=== PATIENT | male | born 1970 | race Caucasian/White ===

== ENCOUNTER 2016-09-17 13:34 | Emergency (ER) | payer OTHER ==
[2016-09-17] MEDS ORDERED: IOPAMIDOL 370 (76%) 100 ML VIAL IV ONE (13:35)
[2016-09-17] MEDS ORDERED: ASPIRIN CHEWTAB 81 MG TABLET ONE (14:18)
[2016-09-17] MEDS ORDERED: PANTOPRAZOLE SODIUM 40 MG VIAL IV ONE (14:18)
[2016-09-17] MEDS ORDERED: MAALOX/LIDO2%VISC/SIMETHICONE 40 ML BOT ONE (14:18)
[2016-09-17 14:33] LABS: ABSOLUTE NEUTROPHIL COUNT 4.2 K/mm3 (1.8-7.7); BASO % 0.5 % (0.2-1.0); EOS # 0.1 (0.0-0.5); HEMATOCRIT 45.5 % (32.0-52.0); HEMOGLOBIN 15.3 gm/l (14.0-18.0); IMM NEUT% 0.3 % (0-1); LYMPH # 1.3 (1.0-4.8); LYMPH % 20.9 % (15-45); MEAN CELL VOLUME 85.2 fl (80.0-94.0); MEAN CORPUSCULAR HEMOGLOBIN 28.7 pg (27.0-31.0); MEAN CORPUSCULAR HGB CONC 33.6 g/dl (33.0-37.0); MONO # 0.6 (0.0-0.8); NEUT % 67.3 % (43-75); PLATELET COUNT 232 K/mm3 (130-400); RED CELL DISTRIBUTION WIDTH 11.9 % (11.5-14.5)
[2016-09-17 14:40] LABS: D-DIMER 2.42 mg/L FEU (0.20-0.50); INR 1.01; PROTHROMBIN TIME 10.6 SECONDS (9.3-11.4)
[2016-09-17 14:45] LABS: TROPONIN I < 0.01 ng/ml (0.0-0.06)
[2016-09-17 14:46] LABS: ALB/GLOB RATIO 1.6 (>1.0); ALBUMIN 3.9 gm/dL (3.5-5.7)
[2016-09-17 14:49] LABS: CKMB ISOENZYME 1.6 ng/ml (0.6-6.3)
--- NOTE | 2016-09-17 14:50 | RAD ---
EXAMINATION:CHEST - 2 VIEWS CLINICAL INDICATION: Chest pain COMPARISON: 09/15/2016. FINDINGS: The cardiomediastinal silhouette is unaltered from the prior study. There is no adenopathy identified. There is no pleural effusion. The lungs are clear. The osseous structures are unremarkable for age. IMPRESSION: Negative PA and lateral views of the chest. No acute cardiopulmonary process is identified.
--- NOTE | 2016-09-17 16:22 | CT ---
EXAMINATION: CT angiography of the thorax.CTA CHEST FOR PE INDICATION: Chest pain. Recent nephrectomy 10 days ago for renal cell carcinoma. COMPARISON: None TECHNIQUE: Helical scan mode CT of the Thorax after uneventful intravenous contrast administration of 60 ml of Isovue-370. Imaging device: Oncothyreon multidetector CT scan. Helically acquired stacked images were reviewed in the axial, sagittal and coronal planes. Additional 3-D postprocessing was performed and reconstructed images were acquired at the [employer] workstation and reviewed as well. FINDINGS: The bolus is of good quality for diagnosis of pulmonary embolism. There are no pulmonary arterial filling defects. No vascular malformations are identified.. The great vessels opacify normally. The lung parenchyma: There is mild bibasilar atelectasis. No mass or consolidation is identified. There is no pneumothorax. Pleural effusion: None: Mediastinum: There is no worrisome mediastinal or hilar lymphadenopathy. There is cardiomegaly. No pericardial effusion is identified. The thoracic inlet is unremarkable. Osseus structures: No gross lytic or blastic lesions. Soft tissues: within normal limits Limited evaluation of the abdomen on this arterial phase injection reveals: No gross acute inflammatory or obstructive changes. Splenomegaly is noted with a long axis dimension of 15.4 cm. IMPRESSION: 1. Negative for pulmonary embolism. No gross metastatic lesions are identified. 2. Mild bibasilar atelectasis. 3. Cardiomegaly. 4. Splenomegaly. The findings were uploaded to the electronic medical record for review at approximately 4:22 PM 09/17/2016
[2016-09-17 17:35] LABS: URINE BILIRUBIN NEGATIVE (NEGATIVE); URINE BLOOD NEGATIVE (NEGATIVE); URINE GLUCOSE (UA) NEGATIVE (NEGATIVE); URINE LEUKOCYTE ESTERASE NEGATIVE (NEGATIVE); URINE NITRITE NEGATIVE (NEGATIVE); URINE PROTEIN NEGATIVE (NEGATIVE); URINE UROBILINOGEN NORMAL (0-1 mg/dl)
[2016-09-17 17:37] LABS: URINE APPEARANCE CLEAR; URINE COLOR YELLOW
== END 2016-09-17 18:17 | disposition home or self-care (01) ==
LOC: ED 13:34
DX: R07.9 Chest pain, unspecified (principal); G89.18 Other acute postprocedural pain; Z90.5 Acquired absence of kidney
CPT/HCPCS: 85379; 82150; 85025; 82550; 82553; 80053; 85610; 81003; 84484; 71020; 71275; 99284 ×2; 96374; 93005; A9270 ×2; C9113; Q9967

== ENCOUNTER 2016-10-03 07:39 | Emergency (ER) | payer OTHER ==
[2016-10-03] MEDS ORDERED: MORPHINE SULFATE 4 MG/ML SYRINGE ONE ×2 (08:46→10:52)
[2016-10-03] MEDS ORDERED: SODIUM CHLORIDE 0.9% 1,000 ML ONE ×2 (08:46→10:52)
[2016-10-03] MEDS ORDERED: ONDANSETRON 4 MG/2ML 2 ML VIAL ONE (08:46)
[2016-10-03 08:55] LABS: ABSOLUTE NEUTROPHIL COUNT 6.1 K/mm3 (1.8-7.7); BASO % 0.2 % (0.2-1.0); EOS % 0.4 % (0.9-2.9); HEMATOCRIT 45.3 % (32.0-52.0); IMM NEUT% 0.4 % (0-1); LYMPH # 1.1 (1.0-4.8); LYMPH % 13.8 % (15-45); MEAN CELL VOLUME 85.5 fl (80.0-94.0); MEAN CORPUSCULAR HEMOGLOBIN 28.3 pg (27.0-31.0); MEAN CORPUSCULAR HGB CONC 33.1 g/dl (33.0-37.0); MONO % 11.8 % (4-12); NEUT % 73.4 % (43-75); PLATELET COUNT 202 K/mm3 (130-400); RED CELL DISTRIBUTION WIDTH 11.9 % (11.5-14.5); URINE APPEARANCE CLEAR; URINE BILIRUBIN NEGATIVE (NEGATIVE); URINE BLOOD TRACE (NEGATIVE); URINE COLOR AMBER; URINE GLUCOSE (UA) NEGATIVE (NEGATIVE); URINE LEUKOCYTE ESTERASE NEGATIVE (NEGATIVE); URINE NITRITE NEGATIVE (NEGATIVE); URINE PROTEIN TRACE (NEGATIVE); URINE UROBILINOGEN NORMAL (0-1 mg/dl)
[2016-10-03 09:03] LABS: URINE BACTERIA 0; URINE EPITHELIAL CELLS RARE /hpf; URINE RBC 0-2 /hpf; URINE WBC NEG /hpf
[2016-10-03 09:14] LABS: ALB/GLOB RATIO 1.2 (>1.0); ALBUMIN 4.4 gm/dL (3.5-5.7); CALCIUM 11.3 mg/dL (8.6-10.3)
--- NOTE | 2016-10-03 09:51 | CT ---
CT ABDOMEN AND PELVIS WITHOUT CONTRAST HISTORY: Abdominal pain and nausea. TECHNIQUE: No intravenous contrast administered; contiguous axial images were acquired from the lung bases to the ischial tuberosities. Oral contrast was not administered. COMPARISON: Correlation against MRI from 06/30/2016 FINDINGS: LUNG BASES: No gross airspace consolidation or pleural effusion. LIVER: No focal mass effect. SPLEEN: No focal mass effect. PANCREAS: Minor peripancreatic and mesenteric stranding there is relative expansion and hyperattenuation within the superior mesenteric vein. ADRENAL GLANDS: No mass effect. KIDNEYS: Status post left-sided nephrectomy associated fluid collection. Gas is seen at left-sided anterior abdominal wall with additional stranding, correlate against procedural history. Renal transplant at the right iliac fossa without collecting system dilatation. Atrophic right kidney. GALLBLADDER: Present. BOWEL: Moderate fecal loading. Limited assessment of the distal colon due to decompression. No abnormal small bowel dilatation. APPENDIX: Grossly unremarkable. PELVIC ORGANS: No gross mass effect. FREE FLUID: No gross free fluid identified. ABDOMINOPELVIC LYMPH NODES: No abnormally enlarged lymph nodes identified. ABDOMINAL AORTA: Normal caliber. OSSEOUS STRUCTURES: No grossly destructive lesions. Disc degeneration with right paracentral to foraminal protrusion at L5-S1. IMPRESSION: 1. Hyperattenuation, expansion, and fatty edema seen in association with the superior mesenteric vein and its tributaries, worrisome for thrombosis; consider sonographic correlation in the setting of renal transplant in recent nephrectomy. Minor superimposed pancreatitis is difficult to exclude. Mesenteric panniculitis would be in the differential. No free fluid. 2. Evidence of left nephrectomy with post procedure change of the anterior abdominal wall and left renal fossa. 3. Unremarkable noncontrast appearance of right iliac fossa renal transplant. 4. Disc degeneration with right-sided protrusion at L5-S1. Findings discussed with Dr. Soler of the Emergency Medicine clinical service on 10/03/2016 at 0946 hours.
[2016-10-03] MEDS ORDERED: ENOXAPARIN SODIUM 100 MG/ML SYRINGE SUB-Q ONE (10:53)
--- NOTE | 2016-10-03 10:57 | US ---
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 History of left nephrectomy and renal transplant. Limited sonography of the upper abdomen was performed, with a focus on the venous structures. FINDINGS: Superior mesenteric vein: Limited visualization. Splenic vein: Patent. Portal splenic confluence: Partial thrombosis. Main portal vein: Partial thrombosis. Hepatic artery: Patent. Right portal vein: No flow visualized. Left portal vein: Patent. IMPRESSION: 1. 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 Limited assessment of superior mesenteric vein on this study although thrombus is seen at the portal splenic confluence. 2. Hepatic artery, left portal vein, and splenic vein remain patent. Findings discussed with Dr. Soler of the Emergency Medicine clinical service on 10/03/2016 at approximately 1040 hours.
== END 2016-10-03 12:06 | disposition home or self-care (01) ==
LOC: ED 07:39
DX: I81 Portal vein thrombosis (principal); R10.9 Unspecified abdominal pain; R11.0 Nausea; Z90.5 Acquired absence of kidney
CPT/HCPCS: 83690; 82150; 85025; 80053; 84484; 81001; 74176; 76705; 96375; 96376; 99284 ×2; 96374; 96361 ×2; J1650; J2270 ×2; J2405; J7030 ×2